=== PATIENT | male | born 1995 | race Caucasian/White ===

== ENCOUNTER 2021-08-13 13:46 | Outpatient (CLI) | payer OTHER, SELFPAY ==
[2021-08-13 14:58] LABS: Liquefaction Semen Complete in 30 min. (<30 minutes); Semen Color Opaque (Grey-opaque); Semen Immotility 20 %; Semen Non-Progressive Motility 30 %; Semen Progressive Motility 50 % (>32); Semen Total Motility 80 (>40% (PM+NP)); Semen Viscosity Increased (Not Increa.); pH Semen 8.5 (7.2-8.0)
[2021-08-13 14:59] LABS: Semen Morphology Result to Follow; Sperm Count 173 Mil/mL (60-150 million/mL)
[2021-08-15 20:40] LABS: Fructose, Semen 148 mg/dL (150-600)
== END 2021-08-13 13:47 | disposition home or self-care (01) ==
LOC: CHSLAB 13:54
PROVIDERS: Visit Provider Nurse Practitioner
DX: Z31.49 Encounter for other procreative investigation and testing (principal)
CPT/HCPCS: 82757; 88160; 89320